=== PATIENT | male | born 1985 | race Caucasian/White ===

== ENCOUNTER 2016-08-31 05:51 | Emergency (ER) | payer OTHER ==
[2016-08-31 06:06] VITALS: PULSE 70
--- NOTE | 2016-08-31 06:29 | EDPHY ---
H & P Stated Complaint: seizure-possible hypoglycemic event Time Seen by Provider: 08/31/16 06:02 HPI/ROS: Chief Complaint: Seizure HPI: 31-year-old type 1 diabetic male on insulin pump had a witnessed tonic- clonic seizure lasting several seconds this morning after he got up. On EMS arrival the patient was postictal and confused and had a blood sugar of 61. 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 States that last evening he was running high so gave himself corrections. Denies any recent illness. No head injuries. No ingestions. No fevers or chills. No nausea or vomiting. Denies any substance use. ROS: 10 point Review of Systems is negative except as noted in the HPI. PMH: Type 1 diabetes Medications: Rapid acting insulin via insulin pump Social History: No smoking, no alcohol, no recreational drug use Family History: non-contributory Physical Exam: Gen: Awake, Alert, mildly confused and postictal HEENT: Nose: no rhinorrhea Eyes: PERRLA, EOMI Mouth: Moist mucosa Neck: Supple, no JVD Chest: nontender, lungs clear to auscultation Heart: S1, S2 normal, no murmur Abd: Soft, non-tender, no guarding Back: no CVA tenderness, no midline tenderness Ext: no edema, non-tender Skin: no rash Neuro: CN II-XII intact, Sensation grossly intact, Strength 5/5 in bilateral upper and lower extremities - Personal History Current Tetanus Diphtheria and Acellular Pertussis (TDAP): Yes - Medical/Surgical History Hx Chronic Respiratory Disease: No Hx Diabetes: Yes Hx Cardiac Disease: No Hx Renal Disease: No Hx Cirrhosis: No Hx Alcoholism: No Hx HIV/AIDS: No Other PMH: DM1 - Social History Smoking Status: Never smoked Constitutional: Initial Vital Signs Temperature (C) 36.6 C 08/31/16 06:04 Heart Rate 70 08/31/16 06:04 Respiratory Rate 16 08/31/16 06:04 Blood Pressure 128/79 H 08/31/16 06:04 O2 Sat (%) 96 08/31/16 06:04 O2 Delivery Mode Room Air Allergies/Adverse Reactions: No Known Allergies Allergy (Unverified 08/31/16 06:04) Home Medications: Medication Instructions Recorded Apidrdave 08/31/16 Medical Decision Making ED Course/Re-evaluation: I have reviewed the patient's is insulin pump record. Unfortunately his time and date on outside correctly. In reviewing this he got 3 units of insulin at 9 :50 a.m. last night he then had 3.5 units at 10:26 a.m.. He then gave himself 1 unit 1138. And another unit at 11:51 a.m.. This resulting of stacking of his insulin. Patient states that his normal glue, which communicates with his pump is not been working. He has not been manually answering these and allowing the computer to calculate his insulin corrections. Patient's mental status cleared emergency department. Initial blood glucose here was 73. Patient was given a sandwich. His mental status cleared was awake and alert and able to account for events last night. Repeat blood sugar was 104. I have cautioned him about not answering his blood sugars into his pump. I have explained that stacking his insulin will resulted in over correction and he will have a hypoglycemic event such as this. Patient is otherwise is well-appearing. He has no complaints at this time. Will be discharged with follow-up as an outpatient. - Data Points Laboratory Results: 08/31/16 08/31/16 06:34 05:59 POC Glucose 104 mg/dL H mg/dL 73 mg/dL mg/dL (70-100) (70-100) Point of Care Test Results: 08/31/16 08/31/16 05:59 06:34 POC Glucose 73 104 H Departure - Departure Disposition: Home, Routine, Self-Care Clinical Impression: Hypoglycemia, Seizure Condition: Good Instructions: Hypoglycemia in a Person with Diabetes (ED) Additional Instructions: Please make sure to enter your blood glucose levels into your insulin pump for calculating your corrections. Follow up with primary care physician in 3-4 days. Referrals: Albert Randall MD [Medical Doctor] - As per Instructions
[2016-08-31 06:57] VITALS: BP 105/67; RESP 18; TEMP 98.1; O2SAT 100
== END 2016-08-31 06:58 | disposition home or self-care (01) ==
DX: R56.9 Unspecified convulsions (principal); E10.649 Type 1 diabetes mellitus with hypoglycemia without coma